=== PATIENT | male | born 1950 | race Caucasian/White ===

== ENCOUNTER → 2020-11-10 09:15 | Outpatient (CLI) | payer MEDICARE, OTHER, SELFPAY ==
[2020-11-10 10:43] LABS: COVID19 -Nasal RAPID Negative (Negative)
== END ==
PROVIDERS: Visit Provider Surgery
DX: Z20.822 Contact with and (suspected) exposure to COVID-19 (principal)
CPT/HCPCS: 87635; C9803

== ENCOUNTER 2020-11-13 09:15 | Day surgery (SDC) | payer MEDICARE, OTHER, SELFPAY ==
[2020-11-13] VITALS (7 sets, daily range): BP systolic 114–151; BP diastolic 70–86; PULSE 86–93; RESP 12–18; TEMP 36.3–36.8; O2SAT 94–99; BMI 30.8
[2020-11-13] MEDS: LACTATED RINGERS 1,000 ML 200 ML IV (10:04)
--- NOTE | 2020-11-13 10:54 | PM.HP.1 ---
History of Present Illness History of Present Illness Date Patient Seen: 11/13/20 Time Patient Seen: 10:55 Chief complaint: SDC Narrative: The patient presents for colorectal sreening. Previous colonoscopy 8 years ago significant for 3 polyps. No personal or family history of colon cancer. On further history denies any recent gastrointestinal symptoms. No nausea, vomiting, abdominal pain, loss of appetite, unexplained weight loss, change in bowel habits, diarrhea, constipation, melena, hematochezia, or bright red blood per rectum. Patient History Medical History (Updated 11/13/20 @ 10:57 by Ronnie Quiñonez MD) HTN (hypertension) Surgical History (Updated 11/13/20 @ 10:57 by Ronnie Quiñonez MD) H/O knee surgery Family & Social History Social History: household members spouse Tobacco & Substance use: Smoking Status Former smoker alcohol intake former Substance Use Type does not use Meds Home Medications and Allergies Home Medications Medication Instructions Recorded Confirmed Type losartan 100 mg tablet 100 mg PO DAILY 11/13/20 11/13/20 History Allergies Allergy/AdvReac Type Severity Reaction Status Date / Time No Known Drug Allergies Allergy Verified 11/13/20 09:56 Review of Systems Review of Systems ROS: Yes All systems reviewed with the patient and are negative except as otherwise documented Exam Vital Signs (past 8 hours): - 11/13/20 09:45 Temperature 98.3 F Pulse Rate 93 H Respiratory Rate 16 Blood Pressure 151/86 H Pulse Oximetry 99 Oxygen Delivery Method Room Air Narrative Exam Narrative: GENERAL-well developed adult male, no acute distress HEENT-no scleral icterus, hearing intact NECK-no JVD, trachea midline CVS- regular rate, no peripheral edema RESP-unlabored respiratory effort, no audible wheezing GI-soft, nontender nondistended MSK-no cyanosis or clubbing, extremities without deformity SKIN-warm, dry NEURO-alert and oriented, no focal deficits PYSCH-Appropriate mood and affect Assessment & Plan Assessment & Plan narrative: The patient requires colorectal screening and colonoscopy is recommended. Technical details were discussed. Risks, benefits, alternatives explained. Risks including but not limited to myocardial infarction, aspiration, bleeding, pain, missed lesion, incomplete examination, need for further radiographic studies, colonic perforation, and need for major abdominal surgery were discussed. All questions were answered to their satisfaction, and they are in agreement with this plan.
[2020-11-13] MEDS: fentaNYL 250 MCG/5 ML INJ IV (11:08)
[2020-11-13] MEDS: MIDAZOLAM 5 MG/5 ML VIAL IV (11:08)
--- NOTE | 2020-11-13 11:19 | PM.OP.ENDO ---
Operative Date/Time/Diagnoses Date of procedure: 11/13/20 Time of procedure: 11:19 Pre-op diagnosis: Personal history of colonic polyps Post-op diagnosis: same Procedure & Clinicians Study performed: Colonoscopy Same procedure as scheduled: Yes Indications: Personal history of colonic polyps Surgeon: Ronnie Quiñonez Procedure Notes Procedure in detail: Medications: Conscious sedation using 6mg IV midazolam and 150mcg IV of fentanyl The history and physical was performed/updated and the patient is ASA class is 2. The procedure was discussed in detail with the patient. Potential risks complications including infection, bleeding, missed diagnosis, perforation, need for surgery, and were explained. Their questions were answered and informed consent was obtained. Patient was brought to the procedure room and placed standard monitoring equipment. The patient's vital signs were monitored continuously throughout the entire procedure. Prior to starting time-out was performed. The patient was placed in the left lateral recumbent position. Procedural sedation was administered. Examination began with a thorough inspection of the perianal area there was no evidence of fissures, fistulae, external hemorrhoids or cutaneous malignancy. The colonoscopy scope was then placed into the anal canal and was advanced to the cecum, which was identified by the ileocecal valve, the appendiceal orifice and the confluence of the taenia. The scope was then slowly withdrawn examining colon thoroughly in all directions, irrigating it of any residual stool. FINDINGS 1. Normal healthy colon 2. No masses or polyps 3. Grade 1 internal hemorrhoids The patient tolerated the procedure well. They will be discharged once criteria are met. The prep was of good/excellent quality. The withdrawl time was 6minutes. The sedation time was 19 minutes. Specimen(s): none sent Complications: none Impression: Normal colonoscopy Post-procedure Recommendations: Colonscopy in 10 years Disposition: same day surgery
--- NOTE | 2020-11-13 11:27 | SUR.PHASEI ---
Received to PACU after colonoscopy with sedation. Report received from MANAS Arnett.
== END 2020-11-13 12:16 | disposition home or self-care (01) ==
PROVIDERS: Referring Provider Surgery; Visit Provider Surgery
PROC: 0DJD8ZZ Inspection of Lower Intestinal Tract, Via Natural or Artificial Opening Endoscopic (ICD-10-PCS; CPT 45378; principal; 2020-11-13 10:45)
DX: Z12.11 Encounter for screening for malignant neoplasm of colon (principal); Z86.010 Personal history of colon polyps; K64.0 First degree hemorrhoids; I10 Essential (primary) hypertension
CPT/HCPCS: G0105; 99152; J2250; J3010

== ENCOUNTER → 2023-01-30 13:48 | Outpatient (CLI) | payer MEDICARE, OTHER, SELFPAY ==
--- NOTE | 2023-01-30 13:50 | DI.RAD.S_ITS ---
PROCEDURE: XR KUB INDICATIONS: Kidney stones TECHNIQUE: One view of the abdomen acquired. COMPARISON: [facility], , CT HEMATURIA PROTOCOL, 11/19/2022, 9:17. FINDINGS: Surgical changes and devices: None. Bowel: Bowel gas pattern is normal. Soft tissues: Prior L3-L5 laminectomies. 9 millimeter calcification projects over the lower pole of the right kidney. No definite left-sided renal stones however left-sided renal stones could be obscured by bowel gas and stool.. Visualized solid organ contours appear normal in size. Spine degenerative disc disease and facet arthropathy. Bones: No suspicious bony lesions. IMPRESSION: 9 millimeter right renal stone. Dictated by: Jie Moser MD, PhD on 01/30/2023 at 14:07 Approved by: Jie Moser MD, PhD on 01/30/2023 at 14:09
== END ==
PROVIDERS: PCP Student in an Organized Health Care Education/Training Program; Referring Provider Urology; Visit Provider Urology
DX: N20.0 Calculus of kidney (principal); R36.1 Hematospermia; R39.9 Unspecified symptoms and signs involving the genitourinary system; N42.81 Prostatodynia syndrome; N42.9 Disorder of prostate, unspecified; N41.1 Chronic prostatitis
CPT/HCPCS: 74018; 99214

== ENCOUNTER 2023-02-18 06:32 | Day surgery (SDC) | payer MEDICARE, OTHER, SELFPAY ==
[2023-02-12 14:45] VITALS: BMI 32.1
[2023-02-18] MEDS: LACTATED RINGERS 1,000 ML 42 ML IV (07:16)
[2023-02-18 07:24] VITALS: BP 140/79; PULSE 95; RESP 17; TEMP 36.6; O2SAT 959; BMI 32.1
[2023-02-18] MEDS: ACETAMINOPHEN 325 MG TABLET 975 MG PO (07:40)
--- NOTE | 2023-02-18 07:40 | PM.PREOP ---
Pre-operative Note COVID-19 COVID-19 status: Not tested Interval Note History & Physical reviewed/Exam performed by Physician: Yes Changes to H&P: No
[2023-02-18] MEDS: CEFAZOLIN 2 GM/100 ML PREMIX 100 ML IV (07:50)
--- NOTE | 2023-02-18 08:01 | SUR.OPER ---
Lithotomy on ESWL table, head on pillow, arms padded with gel pads and tucked at sides at <90 degrees abduction. Legs secured in ESWL table stirrups. Patients glasses brought with patient to OR and then PACU. Placed in black glass case with patient ID label.
[2023-02-18 08:36] VITALS: BP 156/88; PULSE 92; RESP 12; TEMP 36.3; O2SAT 94
[2023-02-18 08:41] VITALS: BP 147/91; PULSE 94; RESP 12; O2SAT 96
--- NOTE | 2023-02-18 08:41 | PM.OP.1 ---
Procedure & Clinicians Procedure: Cystoscopy with right ureteral stent placement and right extracorporeal shockwave lithotripsy Same procedure as scheduled: Yes Indications: This 73-year-old male with known history of kidney stones had recent imaging which revealed a 9 mm renal calculus. He presents this time for treatment of this calculus. Surgeon: Shamar Mujica Click Yes if Unassisted: Yes Anesthesia Type: General Operative Notes Findings: Findings: At cystoscopy urethral meatus was normal urethral was normal along its length and the sphincter was well coapted. The prostate exhibited moderate obstructive character. With a high bladder neck ureteral orifices were perhaps somewhat medial than might be expected but were otherwise normal with clear efflux. The bladder exhibited no abnormality with normal mucosa perhaps mild trabeculation no fistula no evidence of stone. The stone was noted to be in the renal pelvis 9 mm received 1000 shocks at level 7 which appeared to have complete dissolution of the stone. The patient had a 7 Amharic by multi length ureteral stent placed with. Closure Type: not applicable Specimen(s): none sent Prosthetic devices, grafts, tissues, transplants, or devices: Seven Amharic by multi length stent right collecting system no string Estimated Blood Loss (mL): 0 Procedure in detail: Procedure in detail: After informed consent was obtained, the patient was identified and brought the operating room and was placed in supine position on the table. Patient then had anesthesia induced to maintain. Ensuring an adequate level anesthesia the patient was then transitioned to the lithotomy position where he was prepped, draped comes prepared for Transurethral procedure. Ensuring an adequate level of anesthesia after prepping, draping and preparation as well as time-out a 22 Amharic cystoscope was passed through the urethra in the bladder were cystoscopy is performed. A hybrid guidewire was then passed up into the collecting system under fluoroscopic visualization. The stent was then passed over the wire position in the renal pelvis under fluoroscopic visualization in the bladder under direct vision. The nylon string or hardness was removed. The stent was left in good position the bladder was drained the scope was removed patient had the stone targeted via the imaging system and shockwave was delivered at level 7 with periodic reimaging and re localization to ensure maximal energy delivery to the stone. At a 1000 shockwave it appeared the stone had been well treated the shockwave head was rotated out and fluoroscopy performed. This revealed the stone to be completely fragmented. At this point the procedure was stopped the patient was awakened having tolerated the procedure well and transferred to the post anesthesia care unit for recovery. There were no complications Complications: none Post-operative Condition: stable Disposition: PACU Plan for aftercare: Patient is to be discharged to home to strain his urine save any fragments that he catches to bring to follow-up which will be in approximately 10-14 days with a KUB.
[2023-02-18 08:46] VITALS: BP 135/76; PULSE 87; RESP 12; O2SAT 97
[2023-02-18 08:50] VITALS: BP 146/84; PULSE 79; RESP 16; TEMP 36.2; O2SAT 98
[2023-02-18] MEDS: OXYBUTYNIN 5 MG TABLET PO (08:56)
[2023-02-18] MEDS: PHENAZOPYRIDINE 100 MG TABLET 200 MG PO (08:56)
[2023-02-18 09:55] VITALS: BP 140/79; PULSE 70; RESP 18; TEMP 36.4; O2SAT 98
== END 2023-02-18 09:37 | disposition home or self-care (01) ==
PROVIDERS: PCP Student in an Organized Health Care Education/Training Program; Referring Provider Urology; Visit Provider Urology
PROC: (CPT 50590; principal; 2023-02-18 07:45)
DX: N20.1 Calculus of ureter (principal)
CPT/HCPCS: 50590; 52332; 82962; J0690; J1100; J1885; J2405; J2704; J3010

== ENCOUNTER → 2023-02-28 07:51 | Outpatient (CLI) | payer MEDICARE, OTHER, SELFPAY ==
--- NOTE | 2023-02-28 07:52 | DI.RAD.S_ITS ---
PROCEDURE: XR KUB INDICATIONS: follow up after surgery TECHNIQUE: One view of the abdomen acquired. COMPARISON: [facility], , XR KUB, 01/30/2023, 13:55. FINDINGS: Surgical changes and devices: There is been interval placement of a right double-J ureteral stent. Bowel: Bowel gas pattern is normal. Soft tissues: A questionable calcification is noted along the tract of the distal right ureter. It is unclear whether this is a ureteral calculus or may represent bone or vascular shadows. No other suspicious calcifications. Bones: No suspicious bony lesions. IMPRESSION: Double-J ureteral stent. Questionable distal right ureterolithiasis versus overlapping bone or vascular calcification. Dictated by: Jaimie Escobar M.D. on 02/28/2023 at 10:38 Approved by: Jaimie Escobar M.D. on 02/28/2023 at 10:41
== END ==
PROVIDERS: PCP Student in an Organized Health Care Education/Training Program; Referring Provider Urology; Visit Provider Urology
DX: Z96.0 Presence of urogenital implants (principal); Z09 Encounter for follow-up examination after completed treatment for conditions other than malignant neoplasm; R39.9 Unspecified symptoms and signs involving the genitourinary system; N20.0 Calculus of kidney; N41.1 Chronic prostatitis; Z87.442 Personal history of urinary calculi
CPT/HCPCS: 74018; 81002; 87086

== ENCOUNTER → 2023-02-28 14:55 | Outpatient (CLI) | payer MEDICARE, OTHER, SELFPAY | PROVIDERS: PCP Student in an Organized Health Care Education/Training Program; Visit Provider Urology | DX: R39.9 Unspecified symptoms and signs involving the genitourinary system (principal) | CPT/HCPCS: 87086 ==

== ENCOUNTER → 2023-03-04 08:45 | Outpatient (CLI) | payer MEDICARE, OTHER, SELFPAY ==
--- NOTE | 2023-03-04 08:46 | DI.RAD.S_ITS ---
PROCEDURE: XR KUB INDICATIONS: Follow-up kidney stone TECHNIQUE: One view of the abdomen acquired. COMPARISON: [facility], RG, CT HEMATURIA PROTOCOL, 11/19/2022, 9:17. [facility], CR, XR KUB, 02/28/2023, 7:55. FINDINGS: Surgical changes and devices: Right double-J ureteral stent is in the expected position. Bowel: Bowel gas pattern is normal. Soft tissues: Stone at the inferior pole the left kidney measuring 0.8 cm, unchanged. Bilateral internal iliac artery vascular calcifications. No suspicious abdominal calcifications. Visualized solid organ contours appear normal in size. Bones: No suspicious bony lesions. Mild scoliosis. IMPRESSION: 1. Right double-J ureteral stent is in the expected position. 2. Small left kidney stone is unchanged. Dictated by: Baljeet Valencia M.D. on 03/04/2023 at 10:41 Approved by: Baljeet Valencia M.D. on 03/04/2023 at 11:02
== END ==
PROVIDERS: PCP Student in an Organized Health Care Education/Training Program; Referring Provider Urology; Visit Provider Urology
DX: N20.0 Calculus of kidney (principal); Z87.442 Personal history of urinary calculi; Z96.0 Presence of urogenital implants
CPT/HCPCS: 74018

== ENCOUNTER 2023-03-18 06:32 | Day surgery (SDC) | payer MEDICARE, OTHER, SELFPAY ==
[2023-03-13 13:35] VITALS: BMI 31.6
[2023-03-18] VITALS (9 sets, daily range): BP systolic 118–161; BP diastolic 74–97; PULSE 58–98; RESP 11–98; TEMP 36.2–36.4; O2SAT 96–99; BMI 31.7
[2023-03-18] MEDS: LACTATED RINGERS 1,000 ML 42 ML IV (07:09)
[2023-03-18] MEDS: ACETAMINOPHEN 325 MG TABLET 975 MG PO (07:30)
--- NOTE | 2023-03-18 07:42 | PM.PREOP ---
Pre-operative Note COVID-19 COVID-19 status: Not tested Interval Note History & Physical reviewed/Exam performed by Physician: Yes Changes to H&P: Yes H&P completed within 30 days and has changed as indicated here:: Physical exam and assessment and plan or updated
[2023-03-18] MEDS: CEFAZOLIN 2 GM/100 ML PREMIX 100 ML IV (07:50)
--- NOTE | 2023-03-18 08:05 | SUR.OPER ---
Lithotomy on ESWL table, head on pillow, arms padded and tucked. Legs secured in ESWL table stirrups.
--- NOTE | 2023-03-18 08:41 | PM.OP.1 ---
Procedure & Clinicians Procedure: Left extracorporeal shockwave lithotripsy with cystoscopy and left stent placement and right stent removal. Same procedure as scheduled: Yes Indications: This 73-year-old male presented with complaints of bilateral kidney stones. He underwent treatment of his right sided stones by extracorporeal shockwave lithotripsy at his cleared the fragments. He presents now for treatment of his left-sided stones by extracorporeal shockwave lithotripsy. We will also place a left sided stent and remove his previously placed right-sided ureteral stent. Surgeon: Shamar Mujica Click Yes if Unassisted: Yes Anesthesia Type: General Operative Notes Findings: Findings: At cystoscopy urethral meatus and urethra normal with normal mucosa. Sphincter as well coapted prostate shows moderate obstructive character. The stent is noted in the right ureteral orifice the left ureteral orifices in normal position with clear efflux. The bladder is normal. The right-sided stent is removed in its entirety without difficulty and the left-sided stent is left in good position in the left collecting system by direct vision and fluoroscopy. Stone is noted in the mid kidney stone treated with 1500 shocks at level 7 and appeared to fragment completely. There were no other abnormalities. Closure Type: not applicable Specimen(s): none sent Prosthetic devices, grafts, tissues, transplants, or devices: Seven Spanish by multi length stent left collecting system no string Estimated Blood Loss (mL): 0 Procedure in detail: Procedure in detail: After informed consent was obtained, the patient was identified and brought to the operating room where he was placed in his supine position on the Lithotripter. Once there he had anesthesia induced and maintained. Ensuring an adequate level of anesthesia the patient was transitioned to the lithotomy position where he was prepped, draped and prepared for Transurethral procedure. After ensuring an adequate level of anesthesia, administration of antibiotics, prepping, draping, time-out a 22 Spanish cystoscope was passed through the urethra and into the bladder under direct vision. Cystoscopy was performed. A hybrid guidewire was then passed up and into the left collecting system under fluoroscopic guidance. The stent was then passed over the wire positioned in the renal pelvis under fluoroscopic visualization in the bladder under direct vision. The nylon harness was removed and the stent was left in good position with the wire having been removed. Grasping forceps was then used to grasp the right-sided stent was removed in its entirety. The cystoscope was reinserted and the patient's bladder drained he then went on to lithotripsy. The stone was targeted via the imaging system and shockwave delivered at level 7 for a total of 1500 shocks. There was periodic reimaging and re localization to ensure maximal energy delivery to the stone. At 3:00 p.m. shocks the stone appeared well fragmented the shockwave head was rotated out and fluoroscopy performed. The stone appeared completely fragmented therefore the patient was awakened having tolerated the procedure well to be transferred to the postanesthesia care unit for recovery. Patient will strain all urine and save fragments patient will follow up my office in 10-14 days with a KUB there were no complications. Complications: none Post-operative Condition: stable Disposition: PACU Plan for aftercare: Patient to strain urine to follow up my office in 10-14 days with a KUB.
[2023-03-18] MEDS: OXYCODONE IR 5 MG TABLET PO (08:47)
[2023-03-18] MEDS: ONDANSETRON 4 MG/2 ML INJ IV (08:47)
[2023-03-18] MEDS: METOCLOPRAMIDE 10 MG/2 ML INJ IV (09:19)
== END 2023-03-18 09:40 | disposition home or self-care (01) ==
PROVIDERS: PCP Student in an Organized Health Care Education/Training Program; Referring Provider Urology; Visit Provider Urology
PROC: (CPT 50590; principal; 2023-03-18 07:45)
DX: N20.0 Calculus of kidney (principal)
CPT/HCPCS: 50590; 52332; 82962; J0690; J1100; J2405; J2704; J2765; J3010

== ENCOUNTER → 2023-03-27 08:57 | Outpatient (CLI) | payer MEDICARE, OTHER, SELFPAY ==
--- NOTE | 2023-03-27 09:01 | DI.RAD.S_ITS ---
PROCEDURE: XR KUB INDICATIONS: Follow-up kidney stones TECHNIQUE: One view of the abdomen acquired. COMPARISON: [facility], CR, XR KUB, 01/30/2023, 13:55. [facility], CR, XR KUB, 02/28/2023, 7:55. [facility], CR, XR KUB, 03/04/2023, 8:57. FINDINGS: Surgical changes and devices: The right ureteral stent seen on the last exam is removed. There is a new left ureteral stent in appropriate position. Bowel: Bowel gas pattern is normal. Soft tissues: No definitive renal calculi of the kidneys are partially obscured by overlying stools. Visualized solid organ contours appear normal in size. Bones: No suspicious bony lesions. IMPRESSION: 1. No definitive renal calculi. 2. Left ureter stent in expected position. Dictated by: Jessica Gregory M.D. on 03/27/2023 at 13:10 Approved by: Jessica Gregory M.D. on 03/27/2023 at 13:12
== END ==
PROVIDERS: PCP Student in an Organized Health Care Education/Training Program; Referring Provider Urology; Visit Provider Urology
DX: N20.0 Calculus of kidney (principal); Z87.442 Personal history of urinary calculi; Z96.0 Presence of urogenital implants
CPT/HCPCS: 74018

== ENCOUNTER → 2023-03-27 14:56 | Outpatient (CLI) | payer MEDICARE, OTHER, SELFPAY ==
[2023-04-03 08:09] LABS: Ca oxalate dihydrate 20 % (.); Ca oxalate monohydr 80 % (.); Size 3x3 mm (.)
== END ==
PROVIDERS: PCP Student in an Organized Health Care Education/Training Program; Visit Provider Urology
DX: N20.0 Calculus of kidney (principal); R39.9 Unspecified symptoms and signs involving the genitourinary system; Z87.442 Personal history of urinary calculi; Z96.0 Presence of urogenital implants
CPT/HCPCS: 74018; 82365; 87086

== ENCOUNTER → 2023-05-05 11:42 | Outpatient (CLI) | payer MEDICARE, OTHER, SELFPAY ==
[2023-05-05 14:01] LABS: Prostate Specific Antigen 4.09 ng/mL (0.10-4.00)
== END ==
PROVIDERS: PCP Student in an Organized Health Care Education/Training Program; Referring Provider Urology; Visit Provider Urology
DX: R36.1 Hematospermia (principal); N42.9 Disorder of prostate, unspecified
CPT/HCPCS: 36415; 84153

== ENCOUNTER → 2023-05-12 12:20 | Outpatient (CLI) | payer MEDICARE, OTHER, SELFPAY ==
--- NOTE | 2023-05-12 12:23 | DI.RAD.S_ITS ---
PROCEDURE: XR KUB INDICATIONS: Bilateral kidney stones TECHNIQUE: One view of the abdomen acquired. COMPARISON: [facility], , XR KUB, 03/27/2023, 10:06. FINDINGS: Surgical changes and devices: Similar positioning of left nephroureteral stent. Bowel: Bowel gas pattern is normal. Soft tissues: No suspicious abdominal calcifications. Visualized solid organ contours appear normal in size. Bones: No suspicious bony lesions. IMPRESSION: No definite renal calculi. Similar positioning of left ureter stent. Approved by: Colleen Holguin M.D. on 05/13/2023 at 0:30
== END ==
PROVIDERS: PCP Student in an Organized Health Care Education/Training Program; Referring Provider Urology; Visit Provider Urology
DX: N20.0 Calculus of kidney (principal); R36.1 Hematospermia; Z96.0 Presence of urogenital implants
CPT/HCPCS: 74018; 81002; 82365

== ENCOUNTER → 2023-05-12 13:54 | Outpatient (CLI) | payer MEDICARE, OTHER, SELFPAY ==
[2023-05-19 19:53] LABS: Ca oxalate monohydr 100 % (.); Size 2x2 mm (.)
== END ==
PROVIDERS: PCP Student in an Organized Health Care Education/Training Program; Visit Provider Urology
DX: N20.0 Calculus of kidney (principal)
CPT/HCPCS: 82365

== ENCOUNTER → 2023-06-06 08:11 | Outpatient (CLI) | payer MEDICARE, OTHER, SELFPAY ==
--- NOTE | 2023-06-06 08:12 | DI.RAD.S_ITS ---
PROCEDURE: XR KUB INDICATIONS: Follow-up kidney stones TECHNIQUE: One view of the abdomen acquired. COMPARISON: [facility], CR, XR KUB, 02/28/2023, 7:55. [facility], CR, XR KUB, 03/27/2023, 10:06. [facility], , CT HEMATURIA PROTOCOL, 11/19/2022, 9:17. [facility], CR, XR KUB, 05/12/2023, 12:27. FINDINGS: Surgical changes and devices: None. Bowel: Bowel gas pattern is normal. Above average colonic stool burden notably at the hepatic flexure. Soft tissues: No suspicious abdominal calcifications. Visualized solid organ contours appear normal in size. Similar positioning of double-J ureteral stent. No radiographic evidence of nephrolithiasis. Bones: No suspicious bony lesions. IMPRESSION: 1. Similar positioning of double-J ureteral stent. No radiographic evidence of nephrolithiasis. 2. Above average colonic stool burden which may correlate with constipation. Dictated by: Nitin Moses M.D. on 06/06/2023 at 10:09 Approved by: Nitin Moses M.D. on 06/06/2023 at 10:21
== END ==
PROVIDERS: PCP Student in an Organized Health Care Education/Training Program; Referring Provider Urology; Visit Provider Urology
DX: N20.0 Calculus of kidney (principal); N41.1 Chronic prostatitis; N42.9 Disorder of prostate, unspecified; R39.9 Unspecified symptoms and signs involving the genitourinary system; Z87.442 Personal history of urinary calculi; Z96.0 Presence of urogenital implants
CPT/HCPCS: 74018; 81002; 82365; 99213

== ENCOUNTER → 2023-06-06 09:19 | Outpatient (CLI) | payer MEDICARE, OTHER, SELFPAY ==
[2023-06-14 15:50] LABS: Ca oxalate monohydr 100 % (.); Size 2x2 mm (.)
== END ==
PROVIDERS: PCP Student in an Organized Health Care Education/Training Program; Visit Provider Urology
DX: N20.0 Calculus of kidney (principal)
CPT/HCPCS: 82365

== ENCOUNTER → 2023-06-10 10:11 | Outpatient (CLI) | payer MEDICARE, OTHER, SELFPAY | PROVIDERS: PCP Student in an Organized Health Care Education/Training Program; Visit Provider Urology | DX: R39.9 Unspecified symptoms and signs involving the genitourinary system (principal) | CPT/HCPCS: 52310; 81002; 87086 ==

== ENCOUNTER → 2023-06-20 10:03 | Outpatient (CLI) | payer MEDICARE, OTHER, SELFPAY ==
[2023-06-20 12:06] LABS: Calcium 10.5 mg/dL (8.4-10.2); Uric Acid 5.7 mg/dL (3.5-8.5)
[2023-06-26 09:13] LABS: Calcium 10.5 mg/dL (8.6-10.2); Parathyroid Hormone, Intact 17 pg/mL (15-65)
== END ==
PROVIDERS: PCP Student in an Organized Health Care Education/Training Program; Referring Provider Urology; Visit Provider Urology
DX: N20.0 Calculus of kidney (principal); N41.1 Chronic prostatitis; R36.1 Hematospermia; R39.9 Unspecified symptoms and signs involving the genitourinary system; Z87.442 Personal history of urinary calculi
CPT/HCPCS: 36415; 81002; 82310; 83970; 84100; 84550; 99214

== ENCOUNTER → 2023-07-03 13:23 | Outpatient (CLI) | payer MEDICARE, OTHER, SELFPAY ==
[2023-07-03 14:18] LABS: Calcium 9.8 mg/dL (8.4-10.2)
[2023-07-06 12:53] LABS: Calcium 9.2 mg/dL (8.6-10.2); Parathyroid Hormone, Intact 28 pg/mL (15-65)
== END ==
PROVIDERS: PCP Student in an Organized Health Care Education/Training Program; Referring Provider Urology; Visit Provider Urology
DX: N20.0 Calculus of kidney (principal); R39.9 Unspecified symptoms and signs involving the genitourinary system
CPT/HCPCS: 36415; 82310; 83970; 84100; 84550

== ENCOUNTER → 2023-08-27 11:20 | Outpatient (CLI) | payer MEDICARE, OTHER, SELFPAY ==
[2023-08-27 13:08] LABS: Calcium 9.9 mg/dL (8.4-10.2); Phosphorous 3.3 mg/dL (2.3-3.7)
== END ==
LOC: LAB 11:21
PROVIDERS: PCP Student in an Organized Health Care Education/Training Program; Referring Provider Urology; Visit Provider Urology
DX: Z87.442 Personal history of urinary calculi (principal); N20.0 Calculus of kidney; R39.9 Unspecified symptoms and signs involving the genitourinary system; R97.20 Elevated prostate specific antigen [PSA]
CPT/HCPCS: 36415; 82310; 84100; 84153; 84154

== ENCOUNTER → 2023-10-09 12:35 | Outpatient (CLI) | payer MEDICARE, OTHER, SELFPAY ==
--- NOTE | 2023-10-09 12:37 | DI.MRI.S_ITS ---
PROCEDURE: MR KNEE RT WO CON INDICATIONS: Pain in right knee TECHNIQUE: Noncontrast sagittal PD fast spin echo and T2 fast spin echo with fat saturation, sagittal 3-D FLASH with fat saturation; coronal T1 spin echo and PD fast spin echo with fat saturation, and axial PD fast spin echo with fat saturation through the knee. COMPARISON: [facility] [place], [place], XR KNEE 4+ VIEWS RIGHT, 09/19/2020, 15:10. FINDINGS: Image quality: Excellent. Menisci: In the medial meniscus, there is complex tear of the posterior, with predominantly horizontal oblique component. There is near maceration of the medial meniscus body. There is extrusion of the residual medial meniscus body. In the lateral meniscus, there is a small undersurface tear of the posterior horn (series 7, image 10). There is mild inner margin blunting of the lateral meniscus body. No extrusion of the lateral meniscus body. Cruciate ligaments: Severe mucoid degeneration of the ACL. Multiple ganglion cyst about the proximal PCL, measuring 1.5 cm overall. The PCL is unremarkable. Medial structures: The medial collateral ligament appears intact. The posterior oblique ligament, semimembranosus tendon insertions, oblique popliteal ligament, and meniscocapsular junction appear intact. Visualized portions of the pes anserinus tendons appear normal. No abnormal bursal fluid. Lateral structures: The lateral collateral ligament, long and short heads of the biceps femoris tendon appear intact. The popliteus tendon appears normal; the popliteofibular ligament appears intact. The posterosuperior and anteroinferior popliteomeniscal fascicles appear intact. The arcuate and fabellofibular ligaments appear intact, on either side of the lateral inferior geniculate artery. Iliotibial band appears normal. Anterior structures: The quadriceps and patellar tendons appear intact. Patellar alignment is normal. No femoral trochlear dysplasia or ventral trochlear prominence. No edema in the infrapatellar fat pad. Bones and cartilage: Multifocal high-grade chondral loss in the central trochlea, extending to the lateral trochlea, with mild subchondral marrow edema the lateral trochlea. In the medial compartment, there is high-grade chondral loss in the weight-bearing portion of the femoral condyle. large areas of full-thickness chondral loss in the medial tibial plateau, with associated subchondral marrow edema. In the lateral compartment, there is multifocal high-grade chondral irregularity in the weight-bearing portion in the nonweightbearing portion of the femoral condyle. Subchondral cystic changes with marrow edema of the femoral condyle at the intercondylar notch, favor reactive. Moderate subchondral marrow edema of the tibial eminence, favor reactive. No acute fracture. Joint space: Small knee effusion. Small popliteal cyst. Small amount of effusion within the proximal tibiofibular joint. No intra-articular bodies. Popliteal vasculature is unremarkable. IMPRESSION: 1. Severe tear of the medial meniscus. 2. Mild tear of the lateral meniscus. 3. Severe mucoid degeneration of the ACL with associated cluster of ganglion cyst. 4. Moderate tricompartmental chondrosis. Dictated by: Amna Babcock M.D. on 10/10/2023 at 22:06 Approved by: Amna Babcock M.D. on 10/10/2023 at 22:19
== END ==
PROVIDERS: PCP Student in an Organized Health Care Education/Training Program; Referring Provider Nurse Practitioner Family; Visit Provider Nurse Practitioner Family
DX: S83.231A Complex tear of medial meniscus, current injury, right knee, initial encounter (principal); S83.281A Other tear of lateral meniscus, current injury, right knee, initial encounter; M94.261 Chondromalacia, right knee; M67.461 Ganglion, right knee; M25.561 Pain in right knee
CPT/HCPCS: 73721

== ENCOUNTER → 2024-02-18 10:59 | Outpatient (CLI) | payer MEDICARE, OTHER, SELFPAY ==
[2024-02-20 11:36] LABS: PSA Free % 24.4 % (.); PSA, Total 4.1 ng/mL (0.0-4.0)
== END ==
PROVIDERS: Referring Provider Urology; Visit Provider Urology
DX: R97.20 Elevated prostate specific antigen [PSA] (principal); N20.0 Calculus of kidney; R39.9 Unspecified symptoms and signs involving the genitourinary system
CPT/HCPCS: 36415; 84153; 84154

== ENCOUNTER → 2024-03-22 12:35 | Outpatient (CLI) | payer MEDICARE, OTHER, SELFPAY ==
[2024-03-24 07:12] LABS: PSA Free % 27.1 % (.); PSA, Total 3.5 ng/mL (0.0-4.0)
== END ==
PROVIDERS: Referring Provider Urology; Visit Provider Urology
DX: R97.20 Elevated prostate specific antigen [PSA] (principal)
CPT/HCPCS: 36415; 84153; 84154

== ENCOUNTER → 2024-03-30 13:46 | Outpatient (CLI) | payer MEDICARE, OTHER, SELFPAY ==
[2024-04-01 07:08] LABS: PSA Free % 24.5 % (.); PSA, Total 3.8 ng/mL (0.0-4.0)
== END ==
PROVIDERS: Referring Provider Urology; Visit Provider Urology
DX: R97.20 Elevated prostate specific antigen [PSA] (principal); R39.9 Unspecified symptoms and signs involving the genitourinary system
CPT/HCPCS: 84153; 84154

== ENCOUNTER → 2024-10-14 11:21 | Outpatient (CLI) | payer MEDICARE, OTHER, SELFPAY ==
--- NOTE | 2024-10-14 11:23 | DI.RAD.S_ITS ---
PROCEDURE: XR KUB INDICATIONS: ROUTINE TECHNIQUE: One view of the abdomen acquired. COMPARISON: [facility], , XR KUB, 06/06/2023, 8:12. FINDINGS: Surgical changes and devices: None. Bowel: Bowel gas pattern is normal. Soft tissues: No suspicious abdominal calcifications. Visualized solid organ contours appear normal in size. Bones: No suspicious bony lesions. IMPRESSION: No acute abnormality. Dictated by: Abraham Ryan RRPeyton Interpreted: Maria Teresa Cyr MD on 10/16/2024 at 17:12 Transcribed by: SELINA on 10/16/2024 at 17:12 Approved by: Maria Teresa Cyr M.D. on 10/17/2024 at 14:14
[2024-10-15 08:39] LABS: PSA, Total 4.3 ng/mL (0.0-4.0)
== END ==
PROVIDERS: Referring Provider Urology; Visit Provider Urology
DX: N20.0 Calculus of kidney (principal); R97.20 Elevated prostate specific antigen [PSA]; Z87.442 Personal history of urinary calculi
CPT/HCPCS: 74018; 84153; 84154